=== PATIENT | male | born 1980 | race Hispanic/Latino ===

== ENCOUNTER 2022-04-21 22:26 | Emergency (ER) | payer OTHER ==
[~2022-04-21] VITALS: Ht 182.9 cm; Wt 130.6 kg
[~2022-04-21 22:26] MED LIST: CELECOXIB200 MG PO; HYDROCODON-ACE1 EA11 PO; LISINOPRIL2.5 MG PO; METAMUCIL1 PKT NG; MULTI VITAMIN1 EACH PO; [UNRECOGNIZED DRUG - OTHER] PO
[2022-04-22] MEDS ORDERED: METOPROLOL SUCC50 MG PO (00:19)
[2022-04-22] MEDS ORDERED: GAS RELIEF80 MG PO (00:56)
[2022-04-22] MEDS ORDERED: ONDANSETRON ODT8 MG PO (00:56)
[2022-04-22] MEDS ORDERED: FIBER TABS625 MG PO (00:56)
== END 2022-04-22 01:06 | disposition home or self-care (01) ==
LOC: ED 22:26
DX: K52.9 Noninfective gastroenteritis and colitis, unspecified (principal); I10 Essential (primary) hypertension; F17.200 Nicotine dependence, unspecified, uncomplicated; Z79.899 Other long term (current) drug therapy
CPT/HCPCS: 36415; 74018; 80053; 81001; 83690; 85025; 99284-25

== ENCOUNTER 2022-08-07 02:24 | Emergency (ER) | payer OTHER ==
[~2022-08-07] VITALS: Ht 182.9 cm; Wt 115.0 kg
[~2022-08-07 02:24] MED LIST changes: +FIBER TABS625 MG PO; +GAS RELIEF80 MG PO; +METOPROLOL SUCC50 MG PO; +ONDANSETRON ODT8 MG PO
--- NOTE | 2022-08-08 18:29 | EKG ---
[facility] [address] [place], [place] [address] Signed Normal sinus rhythm Normal ECG When compared with ECG of 18-DEC-2018 16:29, No significant change was found Confirmed by DARREN BUTLER MD ([id number] on 08/08/2022 6:29:45 PM Electronically Signed By: DARREN BUTLER MD 08/08/22 1829 PATIENT NAME: ABI BREAUX Electrocardiogram DATE OF : 84 PHYSICIAN: DARREN BUTLER MD REPORT #: [id number] REPORT IS CONFIDENTIAL AND NOT TO BE RELEASED WITHOUT AUTHORIZATION
== END 2022-08-07 10:37 | disposition home or self-care (01) ==
LOC: ED 02:24
DX: F10.129 Alcohol abuse with intoxication, unspecified (principal); G93.41 Metabolic encephalopathy; I10 Essential (primary) hypertension; F17.200 Nicotine dependence, unspecified, uncomplicated; Z79.899 Other long term (current) drug therapy; Z20.822 Contact with and (suspected) exposure to COVID-19; Y90.8 Blood alcohol level of 240 mg/100 ml or more
CPT/HCPCS: 31500; 36415; 70450; 71045; 80048; 80053; 81001; 82803; 83605; 83735; 85025; 87502; 93005; 93010; 94002; 99285-25; G0480; J2250; J3010; J3480; J7030; J7060; U0003